=== PATIENT | male | born 1945 | race Caucasian/White ===

== ENCOUNTER 2018-05-28 17:06 | Inpatient (IN) | payer OTHER ==
[~2018-05-28] VITALS: Ht 170.2 cm; Wt 79.4 kg
[2018-05-28 17:09] VITALS: BP 163/54
[2018-05-28 18:05] LABS: URINE BILIRUBIN NEGATIVE (Negative); URINE BLOOD TRACE (Negative); URINE CLARITY CLEAR; URINE COLOR YELLOW; URINE GLUCOSE-RANDOM* 3+ (Negative); URINE KETONES NEGATIVE (Negative); URINE LEUKOCYTES-REFLEX NEGATIVE (Negative); URINE NITRITE-REFLEX NEGATIVE (Negative); URINE PROTEIN (DIPSTICK) NEGATIVE (Negative); URINE SPECIFIC GRAVITY 1.025 (1.005-1.035); URINE UROBILINOGEN 0.2 E.U./dl (0.2-1.0)
[2018-05-28 18:12] LABS: AMP/METHAMP Negative (Negative); BARBITURATES Negative (Negative); BENZODIAZEPINES Negative (Negative); COCAINE Negative (Negative); METHADONE Negative (Negative); OPIATES Negative (Negative); PCP Negative (Negative)
[2018-05-28 18:40] LABS: ABSOLUTE NEUTROPHILS 5.2 thou/uL (1.4-8.2); BASOPHILS 0.7 % (0.0-2.0); EOSINOPHILS 1.3 % (0.0-3.0); HEMATOCRIT 37.9 % (42.0-52.0); HEMOGLOBIN 12.8 gm/dL (14.0-18.0); LYMPHOCYTES 26.1 % (24.0-44.0); MCH 30.2 pg (26.0-34.0); MCHC 33.7 g/dL (28.0-37.0); MCV 89.8 fL (80.0-100.0); MONOCYTES 8.9 % (1.0-8.0); PLATELET COUNT 161 thou/uL (150-400); RBC 4.22 mil/uL (4.50-6.00); RDW 13.8 % (10.5-14.5); WBC 8.3 thou/uL (4.0-11.0)
[2018-05-28 19:23] VITALS: BP 163/54
[2018-05-28 19:38] VITALS: BP 164/84
[2018-05-28 20:15] VITALS: BP 161/78
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
[2018-05-29 14:40] VITALS: BP 171/82
[2018-05-29 19:40] VITALS: BP 183/80
[2018-05-29 22:15] VITALS: BP 183/80
--- NOTE | 2018-05-30 03:01 | NUR ---
PT OUT IN DAY AREA AT START OF EVENING SHIFT.EDGE OF THE GROUP, WITH LITTLE INTERACTION WITH STAFF OR PEERS. DENIES SI OR HI AND WAS COOPERATIVE WITH ASSESSMENT AND HS MEDS. HS BS 235 4u LISPRO GIVEN PLUS 4u SCHEDULED LANTUS OF 4u. BOTH GIVEN TO LT UPPER ABD. PT SETTLED AFTER MEDS AND SNACKS AND CONTINUES TO SLEEP AT THIS TIME.
[2018-05-30 07:37] VITALS: BP 193/90
--- NOTE | 2018-05-30 13:33 | NUR ---
DYSPHORIC MOOD SO FAR THIS SHIFT-ANGRY TENSE FACIAL EXPRESSION UPON INITAL ASSESSMENT-STATES HE DOESN'T LIKE BREAKFAST PROVIDED-WHEN ASKED IF HE WOULD LIKE THIS NURSE TO ORDER ALTERNATIVE OPTION STATES ANGRILY "NO-DON'T BOTHER"RETURNED TO ROOM/BED AFTER AM MEDICATIONS-REFUSING TO PARTICIPATE IN GROUP-NO NOTED PEER INTERACTION. WAS LESS GUARDED MORE VERBAL WHEN APPROACHED IN ROOM FOR 1;1 ASSESSMENT/INTERACTION. CONVERSATION FOCUSES MOSTLY ON HIS UNHAPPINESS WITH RULES AND RESTRICTIONS PLACED ON HIM HERE WELL SKILLED FACILITY-DENIES SUICIDAL IDEATION BUT DOES REPORT FEELING HOPELESS AND SAD- "THINGS WILL ONLY GET WORSE" DOES REPORT CHRONIC BACK PAIN AND VERBALIZES THAT THIS IS PART OF HIS DISCOURAGEMENT AND HOPELESSNESS-APPEARS RECEPTIVE TO AND APPRECIATIVE OF SUPPORT/REASSURANCE AND EDUCATION PROVIDED RE DEPRESSIVE SYMPTOMS AND TX OPTIONS.
--- NOTE | 2018-05-30 16:35 | NUR ---
SW left a voicemail for pt daughter Mitzi concerning a family meeting. SW provided contact information. SW will follow-up with pt on tomorrow, May 31, 2018.
[2018-05-30 20:29] VITALS: BP 131/53
[2018-05-30 23:15] VITALS: BP 131/53
--- NOTE | 2018-05-30 23:30 | NUR ---
ASSUMED CARE @ 19:15. IN BED AT THAT TIME BED. AWAKENED @ 20:45 AND GIVEN 2100 MEDS. LAID DOWN AND RETURNED TO SLEEP. FSBS 166 20:15. 3 U OF SS INSULIN GIVEN, ALONG WITH 4 UNITS OF SCHEDULED INSULIN.
--- NOTE | 2018-05-31 06:06 | NUR ---
SLEEP 10 HOURS.
[2018-05-31 07:50] VITALS: BP 148/75
[2018-05-31 13:18] VITALS: BP 148/75
[2018-05-31 20:53] VITALS: BP 146/77
--- NOTE | 2018-05-31 22:09 | NUR ---
ASSUMED CARE @19:15. AMBULATING AD LACHO WITH WALKER IN THE HALLS. 2150 IN BED, 2100 MEDS GIVEN WHOLE WITH WATER. FSBS 176. GIVEN 3 U OF HUMALOG S/S AND 4 U OF INSULIN GLARGINE. RETURNED TO BED, REPORTED THAT HE DID NOT FEEL LIKE HE WOULD SLEEP.
--- NOTE | 2018-06-01 07:20 | NUR ---
SLEPT 10 HOURS. REPORT GIVEN TO ONCOMMING SHIFT. SURRENDERED CARE OF PATIENT @ 07:05.
[2018-06-01 15:02] VITALS: BP 155/74
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
[2018-06-01 19:24] VITALS: BP 150/75
[2018-06-02 00:56] VITALS: BP 150/75
--- NOTE | 2018-06-02 03:44 | NUR ---
PT ISOLATING IN HIS ROOM. RESTING IN BED. TOOK HS MEDS W/O PROBLEM. SLEPT WELL THROUGH THE NIGHT W/O INCIDENT OR COMPLAINT.
[2018-06-02 07:52] VITALS: BP 137/74
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
[2018-06-02 19:39] VITALS: BP 115/63
[2018-06-03 00:18] VITALS: BP 115/63
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
[2018-06-03 07:20] VITALS: BP 156/75
[2018-06-03 12:33] VITALS: BP 156/75
--- NOTE | 2018-06-03 17:33 | NUR ---
7a-7p: Alert, oriented to name and place this evening. Denies need for pain med for back pain. To DR for meals, appetite fair, consumes 50% of meals, feeds self. Accu-checks continue AC/HS, see log for glucose readings, no SS insulin needed this shift. Ambulatory to DR and therapy/groups sessions with assist of walker. Spoke with marsha Cartagena via phone, update given on status. No behaviors this shift, takes meds without incident. Will continue to monitor.
[2018-06-03 20:00] VITALS: BP 158/86
--- NOTE | 2018-06-04 04:30 | NUR ---
WITHDRAWN TO ROOM UPON START OF SHIFT-REPORTED TO HAVE COME OUT BRIEFLY FOR PM SNACK BEFORE RETURNING TO BED-WHEN APPROACHED IN ROOM FOR HS MEDS AND ASSESSMENT WAS NOTED TO BE RESTING WITH EYES CLOSED IN BED BUT EASILY AROUSABLE TO NAME-DENIES COMPLAINTS OF PAIN-SMILING AND CONVERSING WITH STAFF WITHOUT NOTED OR REPORTED ACUTE ANXIETY-DESCRIBES MOOD " GOOD CAN BE EXPECTED" WHEN ASKED FOR CLARIFICATION STATES "I'M HERE" DOES BRIGHTEN WHEN SPEAKING ABOUT DAUGHTERS VISIT PREVIOUS DAY. BLOOD SUGAR 166-LANTUS AND SLIDING SCALE INSULIN GIVENPER ORDER. PT ASSISTED TO TOILET AND BRIEF CHANGED-SMALL AMOUNT URINE AND SMEAR OF BM NOTED ON BRIEF-GAIT STEADY WITH ASSIST OF ROLLER WALKER. IS NOTED TO BE ORIENTED TO PERSON AND PLACE BUT MISIDENTIFIES MONTH MAR/APR AND STATES HE BELIEVES IT IS LUNCH TIME AT 2130-
[2018-06-04 07:23] VITALS: BP 157/76
--- NOTE | 2018-06-04 08:00 | NUR ---
CLIENT UP OUT OF ROOM WAITING FOR BREAKFAST. STATED HIS GOAL WAS TO GET OUT OF HERE. LUNGS CLEAR AND ON ROOM AIR. USES WALKER FROM HOME, GAIT STEADY. STATED HE HAS SOME PAIN TO LOWER BACK. ENCOURAGED FOR CLIENT TO GO TO GROUP THIS AM, HE STATED HE JUSTS WANTED TO SLEEP. CLIENT STATED HIS DAD SLEPT A LOT AFTER HE GOT OFF WORK.
[2018-06-04] MEDS ORDERED: CLARITIN10 M2 PO (09:02)
[2018-06-04] MEDS ORDERED: ARICEPT10 M1 PO (09:03)
[2018-06-04] MEDS ORDERED: FLOMAX0.4 MG PO (09:03)
[2018-06-04] MEDS ORDERED: LOPRESSOR25 PO (09:04)
[2018-06-04] MEDS ORDERED: AMLODIPINE BESY10 MG PO (09:05)
[2018-06-04] MEDS ORDERED: ASA81BEC PO (09:05)
[2018-06-04] MEDS ORDERED: VOLTAREN GEL 1100 G1 TOP (09:07)
[2018-06-04] MEDS ORDERED: DEPAKOTE ER500 MG PO (09:08)
[2018-06-04] MEDS ORDERED: DEPAKOTE ER250 MG PO (09:08)
[2018-06-04] MEDS ORDERED: NEURONTIN 300300 M1 PO (09:08)
[2018-06-04] MEDS ORDERED: CYMBALTA30 MG PO (09:09)
[2018-06-04] MEDS ORDERED: NAMENDA 5 MG TAB5 M1 PO (09:10)
[2018-06-04] MEDS ORDERED: MIRALAX17 GM PO (09:10)
[2018-06-04] MEDS ORDERED: MAGNESIUM400 MG PO (09:10)
[2018-06-04] MEDS ORDERED: LANTUS100 UNIT/M SUBQ ×2 (09:11→09:12)
[2018-06-04] MEDS ORDERED: VITAMIN D1000 UNI1 PO (09:12)
[2018-06-04] MEDS ORDERED: MELATONIN5 M1 PO (09:13)
--- NOTE | 2018-06-04 09:30 | NUR ---
ATTENDED AM GROUP. STATED HIS DAUGHTER IS COMEING TO GET HIM TODAY.
[2018-06-04 10:04] VITALS: BP 157/76
--- NOTE | 2018-06-04 10:36 | NUR ---
Patient Name: GIGI FROST Admission Date: 05/28/18 DISCHARGE PLAN: Pt will be discharge back to [facility] Care Assessment: Pt was assessed by Dr. Cerda concerning his behaviors with Major neurocognitive Disorder. Dr. Cerda reassessed medication, and pt became compliant. Level II Assessment: None Transportation: Pt will be transported to the nursing facility with his daughter. Special Instructions/Notes: DISCHARGE TO FACILITY: Memory Care Unit Facility: [facility] Fax: Address: [place] [address] Contact Name: ERICKA PCP: HIMA Psychiatrist: CRISTINA
--- NOTE | 2018-06-04 10:43 | NUR ---
CLIENT LEFT WITH DAUGHTER. ESCORTED OUT TO ER ENTRANCE WITH NURSE AND INSTRUCTIONAL SYSTEMS DESIGNER IN W/C. HIS PERSONAL WALKER ACCOMPANIED HIM.
--- NOTE | 2018-06-04 11:04 | NUR ---
GAVE REPORT TO BREANNA AT [facility]. CLIENT ARRIVED THERE DURING REPORT.
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
== END 2018-06-04 11:00 | DRG 57 ==
LOC: ER 17:06 → SBH 18:49 → EROBS 18:49 → SBH 19:34
PROVIDERS: Physician Assistant; ADMIT Psychiatry & Neurology Psychiatry
DX: G30.9 Alzheimer's disease, unspecified (principal); F33.9 Major depressive disorder, recurrent, unspecified; F02.81 Dementia in other diseases classified elsewhere, unspecified severity, with behavioral disturbance; E11.9 Type 2 diabetes mellitus without complications; E78.5 Hyperlipidemia, unspecified; I10 Essential (primary) hypertension; N40.0 Benign prostatic hyperplasia without lower urinary tract symptoms; R45.850 Homicidal ideations; I25.10 Atherosclerotic heart disease of native coronary artery without angina pectoris; G25.2 Other specified forms of tremor; R26.9 Unspecified abnormalities of gait and mobility; K21.9 Gastro-esophageal reflux disease without esophagitis; I25.2 Old myocardial infarction; Z95.1 Presence of aortocoronary bypass graft; Z95.5 Presence of coronary angioplasty implant and graft; Z87.891 Personal history of nicotine dependence; Z79.4 Long term (current) use of insulin; Z79.899 Other long term (current) drug therapy
CPT/HCPCS: 10880